=== PATIENT | female | born 1970 | race African-American/Black ===

== ENCOUNTER 2019-07-05 10:27 | Emergency (ER) | payer OTHER, MEDICARE ==
[2019-07-05 10:33] VITALS: BP 113/69
[2019-07-05] MEDS ORDERED: TETRACAINE HCL 0.5% OPH SOLN 4 ML OD ONE (10:37)
[2019-07-05] MEDS ORDERED: ERYTHROMYCIN 0.5% OPH OINTMENT 3.5 GM TUBE OD ONE (10:48)
--- NOTE | 2019-07-05 10:48 | ER Document Report ---
HPI - HPI Patient complains to provider of: right eye irritation Time Seen by Provider: 07/05/19 10:30 Onset: This morning Context: 48-year-old female presents with right eye irritation. Reports she slept in her contacts. Patient removed both contacts prior to arrival. Reports her eye feels cloudy and she is photosensitive. Denies pain. Denies fever vomiting diarrhea. Associated Symptoms: None Exacerbated by: Other - Right Relieved by: Denies Similar symptoms previously: No Recently seen / treated by doctor: No - Past Medical History - General Information source: Patient - Social History Smoking Status: Unknown if Ever Smoked Cigarette use (# per day): No Frequency of alcohol use: None Drug Abuse: Marijuana Lives with: Family Family History: Reviewed & Not Pertinent Patient has suicidal ideation: No Patient has homicidal ideation: No - Past Medical History Cardiac Medical History: Reports: Hx Hypertension Pulmonary Medical History: Reports: Hx Asthma Psychiatric Medical History: Reports: Hx Bipolar Disorder, Hx Schizophrenia Past Surgical History: Reports: Hx Cholecystectomy Vertical Provider Document - CONSTITUTIONAL Agree With Documented VS: Yes Exam Limitations: No Limitations General Appearance: WD/WN, No Apparent Distress - INFECTION CONTROL TRAVEL OUTSIDE OF THE [place] IN LAST 30 DAYS: No - HEENT HEENT: Atraumatic, Conjuctival Injection, Normocephalic, PERRLA - NECK Neck: Supple - RESPIRATORY Respiratory: No Respiratory Distress - CARDIOVASCULAR Cardiovascular: Regular Rate - MUSCULOSKELETAL/EXTREMETIES Musculoskeletal/Extremeties: MAEW, FROM - NEURO Level of Consciousness: Awake, Alert, Appropriate Motor/Sensory: No Motor Deficit - DERM Integumentary: Warm, Dry Course - Re-evaluation Re-evalutation: 07/05/19 11:05 Eye exam completed. Patient reports she feels much better. She was again instructed on erythromycin ointment and the importance of follow-up with a aeronautical engineering technologist within 1 week for recheck. She is asking if she can drive. She was instructed again not to wear contacts until she follows up with aeronautical engineering technologist.. She reports she has glasses. Patient reports her is driving her home today. - Vital Signs Vital signs: Temp Pulse Resp BP Pulse Ox 98.7 F 67 16 113/69 99 07/05/19 10:32 07/05/19 10:32 07/05/19 10:32 07/05/19 10:32 07/05/19 10:32 Procedures - Eye Procedure Right Time completed: 10:45 Eye Irrigated w/ Saline (ccs): 30 Alcaine Drops Administered: Yes - tetracaine Fluorescein applied: Right Antibiotic Oinment/Drps Admin: Right eye Slit lamp used: No Notes: 07/05/19 10:54 Tetracaine 1 drop applied to right eye. Patient reports immediate relief of irritation. Fluorescein stain applied, no corneal abrasion, no roger sign, no foreign body noted. eye irrigated with 30 cc flush. pt instructed on erythromycin, s/s allergic reaction, pt reports she has been treated with erythromycin before without problems. Discharge - Discharge Clinical Impression: Irritation of right eye Condition: Stable Disposition: HOME, SELF-CARE Instructions: Erythromycin ([facility]) Additional Instructions: *You have been treated for eye *Instill ~1 cm ribbon into the right eye three times daily, for 5 days *Do not wear your contacts until follow up with an aeronautical engineering technologist *Monitor your eye for signs of infection such as increasing pain, redness, swelling, worsening vision *Wash your with hands well when applying ointment to your eyes *Follow up with an aeronautical engineering technologist within 1 week *Return to the emergency department for worsening vision, concerns, needs Referrals: [facility] [Primary [facility] Provider] - Follow up as needed
== END 2019-07-05 11:17 | disposition home or self-care (01) ==
LOC: ER 10:27
DX: H53.141 Visual discomfort, right eye (principal); I10 Essential (primary) hypertension; J45.909 Unspecified asthma, uncomplicated; F12.10 Cannabis abuse, uncomplicated
CPT/HCPCS: 99283; J3490 ×2